=== PATIENT | male | born 1990 | race Two or more races ===

== ENCOUNTER → 2016-05-07 | Outpatient (CLI) | payer OTHER ==
--- NOTE | 2016-05-07 12:59 | REP ---
LEFT TIBIA/FIBULA, TWO VIEWS: HISTORY: Pain. There is no acute fracture or dislocation. The joint spaces are normal in appearance. IMPRESSION: There is no acute fracture or dislocation. Signed by Jian Bridges MD 05/07/2016 01:06 P
== END ==
LOC: M ADAMS 10:48
PROVIDERS: ATTEND Family Medicine
DX: M79.662 Pain in left lower leg (principal)

== ENCOUNTER → 2016-07-02 | Outpatient (CLI) | payer OTHER ==
--- NOTE | 2016-07-02 10:22 | REP ---
RIGHT KNEE, FIVE VIEWS: HISTORY: Injury. There is no acute fracture or dislocation. The joint spaces are normal in appearance. IMPRESSION: There is no acute fracture or dislocation. Signed by Jian Bridges MD 07/02/2016 10:25 A
== END ==
LOC: M ADAMS 08:42
PROVIDERS: ATTEND Physician Assistant Medical
DX: S80.01XA Contusion of right knee, initial encounter (principal); X58.XXXA Exposure to other specified factors, initial encounter; Y92.89 Other specified places as the place of occurrence of the external cause; Y93.89 Activity, other specified; Y99.8 Other external cause status

== ENCOUNTER → 2016-09-22 | Outpatient (CLI) | payer OTHER ==
--- NOTE | 2016-09-22 19:35 | REP ---
AP LATERAL LEFT TIBIA-FIBULA: 09/22/2016. Comparison: 05/07/2016. Clinical history: Anterior lower leg pain for 6 months. Findings: The two-views show the shafts of the tibia and fibula grossly intact. I do not see plain radiographic evidence for tibial periostitis at this time. There is no soft tissue calcification, bony destructive lesion or fracture. Views about the ankle and knee were grossly intact. Impression: 1. No radiographic abnormalities are visualized. With his known symptoms, consider three-phase bone scan for evaluation of possible tibial periostitis. Signed by Erwin Castanon MD 09/23/2016 10:50 A
== END ==
LOC: M ADAMS 17:07
PROVIDERS: ATTEND Family Medicine
DX: M79.662 Pain in left lower leg (principal)

== ENCOUNTER → 2016-12-24 | Outpatient (CLI) | payer OTHER ==
--- NOTE | 2016-12-24 17:07 | REP ---
LEFT FOOT COMPLETE: 12/24/2016. Clinical history: Left foot pain dorsal aspect for 3 weeks. Findings: No prior study. There is periosteal reaction from a mid shaft stress fracture of the second metatarsal. There is no complete fracture, displacement or angulation of the metatarsals, phalanges. Tarsal bones and hind foot were unremarkable. Subtalar joints intact. No heel spurs. Impression: 1. Some periosteal reaction about a stress fracture mid shaft second metatarsal. No displacement, angulation or other signs of a complete transverse fracture. Signed by Erwin Castanon MD 12/24/2016 04:58 P
== END ==
LOC: M ADAMS 15:04
PROVIDERS: ATTEND Family Medicine
DX: M84.475A Pathological fracture, left foot, initial encounter for fracture (principal)

== ENCOUNTER → 2018-04-12 | Outpatient (REF) | payer OTHER, BC ==
--- NOTE | 2018-04-13 04:26 | REP ---
Clinical: Dorsalgia . Technique: AP, lateral, bilateral oblique, and coned-down views. Findings: Alignment and lordosis is maintained. The vertebral bodies including transverse process and spinous processes are intact and normal. There is no evidence for acute fracture / compression injury or subluxation. No evidence for spondylolysis or spondylolisthesis. No significant degenerative change is noted. Impression: Normal lumbosacral spine radiograph series. Electronically Signed by Marcus Kc MD 04/13/2018 04:18 A
== END ==
LOC: M ADAMS 11:02
PROVIDERS: ATTEND Internal Medicine
DX: M54.9 Dorsalgia, unspecified (principal)

== ENCOUNTER → 2021-06-18 | Outpatient (REF) | payer OTHER, BC ==
[2021-06-18 16:08] LABS: INFLUENZA A AMPLIFICATION POSITIVE (NEGATIVE)
[2021-06-18 16:09] LABS: INFLUENZA B AMPLIFICATION NEGATIVE (NEGATIVE)
== END ==
LOC: M LAB REF 14:23
PROVIDERS: ATTEND Physician Assistant
DX: R05.9 Cough, unspecified (principal); R11.2 Nausea with vomiting, unspecified